=== PATIENT | female | born 1985 | race Caucasian/White ===

== ENCOUNTER 2018-11-02 19:49 | Inpatient (IN) | payer OTHER ==
--- NOTE | 2018-11-02 20:01 | PDOC ---
Rapid Medical Evaluation Time Seen by Provider: 11/02/18 19:56 Medical Evaluation: 11/02/18 19:56 HPI:Sent by PCP Dr Rah Garza [facility] who was concerned for Rhabdo PE:No gross deficits ORDERS: Labs CPK U preg Discharge Disposition - Diagnosis Abnormal laboratory test - Referrals - Patient Instructions - Post Discharge Activity
[2018-11-02 20:50] LABS: BASO % 0.9 % (0-2.0); EOS % 1.1 % (0-4.5); HEMATOCRIT 43.5 % (32.4-45.2); HEMOGLOBIN 14.4 GM/dL (10.7-15.3); LYMPH % 20.7 % (8-40); MCHC 33.2 g/dl (32.0-36.0); MEAN CELL VOLUME 96.3 fl (80-96); MEAN PLT VOLUME 8.4 fl (7.5-11.1); MONO % 4.5 % (3.8-10.2); NEUT % 72.8 % (42.8-82.8); PLATELET COUNT 289 K/MM3 (134-434); RBC 4.52 M/mm3 (3.60-5.2); RDW 13.4 % (11.6-15.6); WHITE BLOOD COUNT 14.7 K/mm3 (4.0-10.0)
[2018-11-02 20:58] LABS: EPI CELLS 9.3 /HPF (0-5/HPF); HYALINE CASTS 1 /lpf (0-8); URINE APPEARANCE CLOUDY; URINE BACTERIA 168.2 /hpf (NEGATIVE); URINE BILIRUBIN NEGATIVE (NEGATIVE); URINE COLOR YELLOW; URINE GLUCOSE (UA) NEGATIVE (NEGATIVE); URINE KETONE NEGATIVE (NEGATIVE); URINE LEUK ESTERASE NEGATIVE (NEGATIVE); URINE NITRITE NEGATIVE (NEGATIVE); URINE PROTEIN 1+ (NEGATIVE); URINE RBC 1 /hpf (0-4); URINE UROBILINOGEN 0.2 mg/dL (0.2-1.0); URINE WBC 2 /hpf (0-5)
--- NOTE | 2018-11-02 21:22 | PDOC ---
History of Present Illness - General Chief Complaint: Abnormal Lab Results (Outside) Stated Complaint: DOCTOR SENT-ABNORMAL WBC Time Seen by Provider: 11/02/18 19:56 History Source: Patient Exam Limitations: No Limitations - History of Present Illness Initial Comments: 11/02/18 22:13 HISTORY OF PRESENT ILLNESS: 33-year-old woman without significant medical history presents emergency department for evaluation of dark urine. Patient reports on Wednesday she went wake boarding for the first time and reported extreme physical exertion. The day after the wake boarding she reported increased body aches and noted that her urine was darker than usual. Patient took [id number] pain medicine increased her hydration but noted that the urine was still darker than her usual urine. Today with the increased body aches she went to an urgent care center with a did laboratory testing noted to have elevated AST and ALT, leukocytosis and hyperkalemia. Patient had an ultrasound done there and showed normal kidneys bilaterally. Patient denies any fevers, chills, dysuria, urinary frequency or alcohol intake. No recent travel or sick contacts. PAST MEDICAL HISTORY: Denies past medical history SURGICAL HISTORY: Denies ALLERGIES: No known drug allergies REVIEW OF SYSTEMS General/Constitutional: Denies fever or chills. Denies weakness, weight change. HEENT: Denies change in vision. Denies ear pain or discharge. Denies sore throat. Cardiovascular: Denies chest pain or shortness of breath. Respiratory: Denies cough, wheezing, or hemoptysis. Gastrointestinal: Denies nausea, vomiting, diarrhea or constipation. Denies rectal bleeding. Genitourinary: see HPI Musculoskeletal: Denies joint or muscle swelling or pain. Denies neck or back pain. Skin and breasts: Denies rash or easy bruising. Neurologic: Denies headache, vertigo, loss of consciousness, or loss of sensation. Psychiatric: Denies depression or anxiety. Endocrine: Denies increased thirst. Denies abnormal weight change. Hematologic/Lymphatic: Denies anemia, easy bleeding, or history of blood clots. Allergic/Immunologic: Denies hives or skin allergy. Denies latex allergy. PHYSICAL EXAM General Appearance: Well-appearing, appropriately dressed. No apparent distress , no intoxication. Respiratory/Chest: Lungs CTAB. No shortness of breath, chest tenderness, respiratory distress, accessory muscle use. No crackles, rales, rhonchi, stridor , wheezing, dullness Cardiovascular: RRR. S1, S2. No JVD, murmur, bradycardia, tachycardia. Gastrointestinal/Abdominal: Normal bowel sounds. Abdomen soft, non-distended. No tenderness or rebound tenderness. No organomegaly, pulsatile mass, guarding, hernia, hepatomegaly, splenomegaly. Musculoskeletal/Extremities: Normal inspection. FROM of all extremities, normal capillary refill. Pelvis Stable. No CVA tenderness. No tenderness to extremities, pedal edema, swelling, erythema or deformity. Integumentary: Appropriate color, dry, warm. No cyanosis, erythema, jaundice or rash Neurologic: furniture crater II-XII intact. Fully oriented, alert. Appropriate mood/affect. Motor strength 5/5. No appreciable EOM palsy, facial droop or sensory deficit. Is this a multiple visit Asthma Patient?: No Past History - Past Medical History Allergies/Adverse Reactions: Allergies Allergy/AdvReac Type Severity Reaction Status Date / Time No Known Allergies Allergy Verified 11/02/18 20:02 COPD: No - Psycho Social/Smoking Cessation Hx Smoking History: Never smoked *Physical Exam - Vital Signs Last Vital Signs Temp Pulse Resp BP Pulse Ox 98.5 F 80 18 156/117 H 99 11/02/18 19:57 11/02/18 19:57 11/02/18 19:57 11/02/18 19:57 11/02/18 19:57 ED Treatment Course - LABORATORY CBC & Chemistry Diagram: 11/02/18 20:31 11/02/18 20:31 - ADDITIONAL ORDERS Additional order review: Laboratory Results 11/02/18 11/02/18 20:28 20:28 Urine Color Yellow Urine Appearance Cloudy Urine pH 7.0 Ur Specific [place] 1.006 L Urine Protein 1+ H Urine Glucose (UA) Negative Urine Ketones Negative Urine Blood 3+ H Urine Nitrite Negative Urine Bilirubin Negative Urine Urobilinogen 0.2 Ur Leukocyte Esterase Negative Urine WBC (Auto) 2 Urine RBC (Auto) 1 Urine Casts (Auto) 1 U Epithel Cells (Auto) 9.3 Urine Bacteria (Auto) 168.2 Urine HCG, Qual Negative 11/02/18 20:31 RBC 4.52 MCV 96.3 H MCHC 33.2 RDW 13.4 MPV 8.4 Neutrophils % 72.8 Lymphocytes % 20.7 Monocytes % 4.5 Eosinophils % 1.1 Basophils % 0.9 Medical Decision Making - Medical Decision Making 11/02/18 22:19 A/P: 33-year-old woman with body aches and some dark urine Differential diagnosis includes but is not limited to-rhabdomyolysis, acute liver failure, kidney stones, urinary tract infection Laboratory testing per [facility] EKG Normal saline 1 L bolus Upper abdominal ultrasound Reassess Laboratory Tests 11/02/18 11/02/18 11/02/18 20:28 20:28 20:31 WBC 14.7 H RBC 4.52 Hgb 14.4 Hct 43.5 Plt Count 289 Sodium Potassium Chloride Carbon Dioxide Anion Gap BUN Creatinine Est GFR (CKD-EPI)NonAf Random Glucose Calcium Total Bilirubin AST ALT Alkaline Phosphatase Total Protein Albumin Urine Color Yellow Urine Appearance Cloudy Urine pH 7.0 Ur Specific [place] 1.006 L Urine Protein 1+ H Urine Glucose (UA) Negative Urine Ketones Negative Urine Blood 3+ H Urine Nitrite Negative Urine Bilirubin Negative Urine Urobilinogen 0.2 Ur Leukocyte Esterase Negative Urine WBC (Auto) 2 Urine RBC (Auto) 1 Urine Casts (Auto) 1 U Epithel Cells (Auto) 9.3 Urine Bacteria (Auto) 168.2 Urine HCG, Qual Negative 11/02/18 20:31 WBC RBC Hgb Hct Plt Count Sodium 137 Potassium 4.3 Chloride 102 Carbon Dioxide 27 Anion Gap 7 L BUN 15.2 Creatinine 0.6 Est GFR (CKD-EPI)NonAf 118.92 Random Glucose 96 Calcium 9.4 Total Bilirubin 0.3 AST 2696 H ALT 726 H Alkaline Phosphatase 48 Total Protein 6.8 Albumin 3.5 Urine Color Urine Appearance Urine pH Ur Specific [place] Urine Protein Urine Glucose (UA) Urine Ketones Urine Blood Urine Nitrite Urine Bilirubin Urine Urobilinogen Ur Leukocyte Esterase Urine WBC (Auto) Urine RBC (Auto) Urine Casts (Auto) U Epithel Cells (Auto) Urine Bacteria (Auto) Urine HCG, Qual 11/03/18 01:54 Patient has been sent out and the [facility] follow-up on CPK and upper abdominal sonogram. Discharge - Discharge Information Problems reviewed: Yes Clinical Impression/Diagnosis: Abnormal laboratory test - Follow up/Referral - Patient Discharge Instructions - Post Discharge Activity
[2018-11-02 21:40] LABS: ALBUMIN 3.5 g/dl (3.4-5.0); BILIRUBIN,TOTAL 0.3 mg/dL (0.2-1); BLOOD UREA NITROGEN 15.2 mg/dL (7-18); CALCIUM 9.4 mg/dL (8.5-10.1); CREATININE 0.6 mg/dL (0.55-1.3); POTASSIUM 4.3 mmol/L (3.5-5.1); TOT PROT 6.8 g/dl (6.4-8.2)
[2018-11-02] MEDS ORDERED: SODIUM CHLORIDE 1,000 ML IV STA (21:54)
--- NOTE | 2018-11-02 22:11 | PDOC ---
*Physical Exam - Vital Signs Last Vital Signs Temp Pulse Resp BP Pulse Ox 98.5 F 80 18 156/117 H 99 11/02/18 19:57 11/02/18 19:57 11/02/18 19:57 11/02/18 19:57 11/02/18 19:57 ED Treatment Course - LABORATORY CBC & Chemistry Diagram: 11/02/18 20:31 11/02/18 20:31 - ADDITIONAL ORDERS Additional order review: Laboratory Results 11/02/18 11/02/18 11/02/18 20:31 20:28 20:28 Sodium 137 Potassium 4.3 Chloride 102 Carbon Dioxide 27 Anion Gap 7 L BUN 15.2 Creatinine 0.6 Est GFR (CKD-EPI)AfAm 137.83 Est GFR (CKD-EPI)NonAf 118.92 Random Glucose 96 Calcium 9.4 Total Bilirubin 0.3 AST 2696 H ALT 726 H Alkaline Phosphatase 48 Total Protein 6.8 Albumin 3.5 Urine Color Yellow Urine Appearance Cloudy Urine pH 7.0 Ur Specific [place] 1.006 L Urine Protein 1+ H Urine Glucose (UA) Negative Urine Ketones Negative Urine Blood 3+ H Urine Nitrite Negative Urine Bilirubin Negative Urine Urobilinogen 0.2 Ur Leukocyte Esterase Negative Urine WBC (Auto) 2 Urine RBC (Auto) 1 Urine Casts (Auto) 1 U Epithel Cells (Auto) 9.3 Urine Bacteria (Auto) 168.2 Urine HCG, Qual Negative 11/02/18 20:31 RBC 4.52 MCV 96.3 H MCHC 33.2 RDW 13.4 MPV 8.4 Neutrophils % 72.8 Lymphocytes % 20.7 Monocytes % 4.5 Eosinophils % 1.1 Basophils % 0.9 Medical Decision Making - Medical Decision Making 11/02/18 22:10 Patient seen by the advanced practice provider under my direct supervision. Ancillary testing reviewed as necessary. I agree with plan as outlined by the advanced practice provider. Discharge - Discharge Information Problems reviewed: Yes Clinical Impression/Diagnosis: Abnormal laboratory test - Follow up/Referral - Patient Discharge Instructions - Post Discharge Activity
[2018-11-03] MEDS ORDERED: SODIUM CHLORIDE 1,000 ML IV STA (01:40)
--- NOTE | 2018-11-03 03:14 | PDOC ---
*Physical Exam - Vital Signs Last Vital Signs Temp Pulse Resp BP Pulse Ox 98.5 F 80 18 156/117 H 99 11/02/18 19:57 11/02/18 19:57 11/02/18 19:57 11/02/18 19:57 11/02/18 19:57 ED Treatment Course - LABORATORY CBC & Chemistry Diagram: 11/03/18 09:36 11/03/18 09:36 - ADDITIONAL ORDERS Additional order review: Laboratory Results 11/02/18 11/02/18 11/02/18 20:31 20:28 20:28 Sodium 137 Potassium 4.3 Chloride 102 Carbon Dioxide 27 Anion Gap 7 L BUN 15.2 Creatinine 0.6 Est GFR (CKD-EPI)AfAm 137.83 Est GFR (CKD-EPI)NonAf 118.92 Random Glucose 96 Calcium 9.4 Total Bilirubin 0.3 AST 2696 H ALT 726 H Alkaline Phosphatase 48 Total Protein 6.8 Albumin 3.5 Urine Color Yellow Urine Appearance Cloudy Urine pH 7.0 Ur Specific [place] 1.006 L Urine Protein 1+ H Urine Glucose (UA) Negative Urine Ketones Negative Urine Blood 3+ H Urine Nitrite Negative Urine Bilirubin Negative Urine Urobilinogen 0.2 Ur Leukocyte Esterase Negative Urine WBC (Auto) 2 Urine RBC (Auto) 1 Urine Casts (Auto) 1 U Epithel Cells (Auto) 9.3 Urine Bacteria (Auto) 168.2 Urine HCG, Qual Negative 11/02/18 20:31 RBC 4.52 MCV 96.3 H MCHC 33.2 RDW 13.4 MPV 8.4 Neutrophils % 72.8 Lymphocytes % 20.7 Monocytes % 4.5 Eosinophils % 1.1 Basophils % 0.9 - Medications Given in the ED: ED Medications Discontinued Medications Generic Name Dose Route Start Last Admin Trade Name Freq PRN Reason Stop Dose Admin Sodium Chloride 1,000 mls @ 1,000 mls/hr 11/02/18 21:54 11/02/18 22:47 Normal Saline - IV 11/02/18 22:53 1,000 mls/hr ASDIR STA Administration Sodium Chloride 1,000 mls @ 1,000 mls/hr 11/03/18 01:40 11/03/18 01:50 Normal Saline - IV 11/03/18 02:39 1,000 mls/hr ASDIR STA Administration Medical Decision Making - Medical Decision Making 11/03/18 03:11 Signout taken from GIAN Yepez. Patient is a 33 yo female w/ no pmh who presents for evaluation of dark urine and body aches following wake boarding this weekend. Patient noted to have elevated AST/ALT, Leukocytosis, and hyperkalemia. US normal, history and presentation concerning for rhabdomyolisis. Patient will be admitted for hydration and trending of liver labs. Discharge - Discharge Information Problems reviewed: Yes Clinical Impression/Diagnosis: Abnormal laboratory test Rhabdomyolysis Qualifiers: Rhabdomyolysis type: non-traumatic Qualified Code(s): M62.82 - Rhabdomyolysis - Admission Yes - Follow up/Referral - Patient Discharge Instructions - Post Discharge Activity
--- NOTE | 2018-11-03 04:18 | PN ---
Teaching Attending Note Name of Resident: Lo Grayson ATTENDING PHYSICIAN STATEMENT I saw and evaluated the patient. I reviewed the resident's note and discussed the case with the resident. I agree with the resident's findings and plan as documented. SUBJECTIVE: Patient is a 33 year old woman with a PMH of Asthma who presents to the ER with the complaint of dark urine. Patient reports on Wednesday she went "wake boarding " for the first time and reported extreme physical exertion. The day after the wake boarding she reported increased body aches and noted that her urine was darker than usual. Patient took [id number] pain medicine increased her hydration but noted that the urine was still darker than her usual urine. Today with the increased body aches she went to an Urgent Care Center and laboratory testing noted elevated AST and ALT, leukocytosis and hyperkalemia. Patient had an ultrasound done there and showed normal kidneys bilaterally. Patient denies any fevers, chills, dysuria, urinary frequency or alcohol intake. No recent travel or sick contacts. Denies illicit drug use or past episodes of dark urine. Has not had an asthma attack in a long time. Ambulating well to the bathroom without assistance. LMP was 2 weeks ago and she uses oral contraceptive pills. Has FH of HTN. OBJECTIVE: Alert Vital Signs Period Temp Pulse Resp BP Sys/Viveros Pulse Ox Last 24 Hr 98.5 F 80 18 156/117 99 HEENT: No Jaundice, eye redness or discharge, PERRLA, EOMI. Normocephalic, atraumatic. External ears are normal and hearing is grossly intact. No nasal discharge. Neck: Supple, nontender. No palpable adenopathy or thyromegaly. No JVD Chest: Good effort. Clear to auscultation and percussion. Heart: Regular. No S3, rub or murmur Abdomen: Not distended, soft, nontender and no HSM. No rebound or guarding. Normal bowel sounds. Ext: Peripheral pulses intact. No leg edema. Skin: Warm and dry. No petechiae, rash or ecchymosis. Neuro: Alert. Oriented x3. CN 2-12 grossly intact. Sensation grossly intact in all four extremities and DTR are symmetric. Psych: Appropriate mood and affect. Good insight. Abnormal Lab Results 11/02/18 11/02/18 11/02/18 20:28 20:31 20:31 WBC 14.7 H MCV 96.3 H Absolute Neuts (auto) 10.7 H Anion Gap 7 L AST 2696 H ALT 726 H Creatine Kinase Ur Specific [place] 1.006 L Urine Protein 1+ H Urine Blood 3+ H 11/03/18 01:26 WBC MCV Absolute Neuts (auto) Anion Gap AST ALT Creatine Kinase > 7000 H Ur Specific [place] Urine Protein Urine Blood ASSESSMENT AND PLAN: 1. Rhabdomyolysis - Likely due to extreme physical activity. Leukocytosis may be due to stress. No obvious source of infection. Will get a CXR, continue IV LR at 150 ml/hour, oral hydration, repeat CBC and trend CPK. Monitor calcium and phosphate. Monitor her BP closely - may have undiagnosed hypertension. Will treat appropriately once confirmed. 2. DVT prophylaxis - Early ambulation 3. Advance directives - Full code
--- NOTE | 2018-11-03 05:58 | HP ---
CHIEF COMPLAINT: PCP: unknown HISTORY OF PRESENT ILLNESS: 33 y/o/f with PMHx of asthma here for dark urine x3 days. Patient went wakeboarding on Wednesday and states she physically exerted herself. She has had soreness in her hamstrings, arms, and back since then. She states she fell into the water multiple times. Her urine has been dark since Wednesday of this week even though she states she has been drinking a lot of water. Patient denies any CP, SOB, dysuria, constipation, dizziness, fever, cough, or other symptoms. Patients last period was 2 weeks ago, she is currently sexually active with one partner and uses OCPs. ER course was notable for: (1) NS bolus x2 Recent Travel: none Fam Hx: Father of metastatic Ca when patient was 2 years old. Mother due to alcohol related disease at age 54. 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 PAST MEDICAL HISTORY: Asthma PAST SURGICAL HISTORY: denies Social History: Smoking: denies Alcohol: social EtOH Drugs: denies Allergies No Known Allergies Allergy (Verified 11/02/18 20:02) HOME MEDICATIONS: REVIEW OF SYSTEMS CONSTITUTIONAL: Absent: fever, chills, diaphoresis, generalized weakness, malaise, loss of appetite, weight change HEENT: Absent: rhinorrhea, nasal congestion, throat pain, throat swelling, difficulty swallowing, mouth swelling, ear pain, eye pain, visual changes CARDIOVASCULAR: Absent: chest pain, syncope, palpitations, irregular heart rate, lightheadedness , peripheral edema RESPIRATORY: Absent: cough, shortness of breath GASTROINTESTINAL: Absent: abdominal pain, abdominal distension, nausea, vomiting, diarrhea, constipation GENITOURINARY: Absent: dysuria, frequency, urgency, hesitancy, hematuria, flank pain, genital pain MUSCULOSKELETAL: back, hamstring, arm soreness Absent: joint swelling, back pain, neck pain SKIN: Absent: rash, itching, pallor NEUROLOGIC: Absent: headache, focal weakness or paresthesias, dizziness, unsteady gait, seizure, mental status changes, bladder or bowel incontinence PHYSICAL EXAMINATION Vital Signs - 24 hr 11/02/18 19:57 Temperature 98.5 F Pulse Rate 80 Respiratory 18 Rate Blood Pressure 156/117 H O2 Sat by Pulse 99 Oximetry (%) GENERAL: Awake, alert, and fully oriented, in no acute distress. HEAD: Normal with no signs of trauma. EYES: Pupils equal, round and reactive to light, extraocular movements intact EARS, NOSE, THROAT: nares patent, oropharynx clear without exudates. Moist mucous membranes. NECK: Normal range of motion, supple without lymphadenopathy LUNGS: Breath sounds equal, clear to auscultation bilaterally. No wheezes, and no crackles. No accessory muscle use. HEART: Regular rate and rhythm, normal S1 and S2 without murmur, rub or gallop. ABDOMEN: Soft, nontender, not distended, normoactive bowel sounds, no guarding, no rebound, no masses. MUSCULOSKELETAL: Normal range of motion at all joints. No bony deformities or tenderness. No CVA tenderness. UPPER EXTREMITIES: 2+ pulses, warm, well-perfused. No cyanosis. No clubbing. No peripheral edema. LOWER EXTREMITIES: 2+ pulses, warm, well-perfused. No calf tenderness. No peripheral edema. NEUROLOGICAL: Cranial nerves II-XII intact. Normal speech. Normal gait. PSYCHIATRIC: Cooperative. Good eye contact. Appropriate mood and affect. SKIN: Warm, normal turgor, no rashes or lesions noted, normal capillary refill. Laboratory Results - last 24 hr 11/02/18 11/02/18 11/02/18 20:28 20:28 20:31 WBC 14.7 H RBC 4.52 Hgb 14.4 Hct 43.5 MCV 96.3 H MCH 32.0 MCHC 33.2 RDW 13.4 Plt Count 289 MPV 8.4 Absolute Neuts (auto) 10.7 H Neutrophils % 72.8 Lymphocytes % 20.7 Monocytes % 4.5 Eosinophils % 1.1 Basophils % 0.9 Nucleated RBC % 0 Sodium Potassium Chloride Carbon Dioxide Anion Gap BUN Creatinine Est GFR (CKD-EPI)AfAm Est GFR (CKD-EPI)NonAf Random Glucose Calcium Total Bilirubin AST ALT Alkaline Phosphatase Creatine Kinase Creatine Kinase Index CK-MB (CK-2) Total Protein Albumin Urine Color Yellow Urine Appearance Cloudy Urine pH 7.0 Ur Specific [place] 1.006 L Urine Protein 1+ H Urine Glucose (UA) Negative Urine Ketones Negative Urine Blood 3+ H Urine Nitrite Negative Urine Bilirubin Negative Urine Urobilinogen 0.2 Ur Leukocyte Esterase Negative Urine WBC (Auto) 2 Urine RBC (Auto) 1 Urine Casts (Auto) 1 U Epithel Cells (Auto) 9.3 Urine Bacteria (Auto) 168.2 Urine HCG, Qual Negative 11/02/18 11/03/18 20:31 01:26 WBC RBC Hgb Hct MCV MCH MCHC RDW Plt Count MPV Absolute Neuts (auto) Neutrophils % Lymphocytes % Monocytes % Eosinophils % Basophils % Nucleated RBC % Sodium 137 Potassium 4.3 Chloride 102 Carbon Dioxide 27 Anion Gap 7 L BUN 15.2 Creatinine 0.6 Est GFR (CKD-EPI)AfAm 137.83 Est GFR (CKD-EPI)NonAf 118.92 Random Glucose 96 Calcium 9.4 Total Bilirubin 0.3 AST 2696 H ALT 726 H Alkaline Phosphatase 48 Creatine Kinase > 7000 H Creatine Kinase Index 0.0 CK-MB (CK-2) 32.4 H Total Protein 6.8 Albumin 3.5 Urine Color Urine Appearance Urine pH Ur Specific [place] Urine Protein Urine Glucose (UA) Urine Ketones Urine Blood Urine Nitrite Urine Bilirubin Urine Urobilinogen Ur Leukocyte Esterase Urine WBC (Auto) Urine RBC (Auto) Urine Casts (Auto) U Epithel Cells (Auto) Urine Bacteria (Auto) Urine HCG, Qual ASSESSMENT/PLAN: 33 y/o/f with PMHx of asthma here for dark urine x3 days and soreness after she went waterboarding this last weekend. 1)Rhabdomyolysis - cpk >7000 -LR @200mls/hr -repeat CPK and follow 2)Leukocytosis -repeat CBC, monitor -CXR to rule out infectious source 3)HTN -patient BP improving, continue to monitor -consider medication 4)Prophylaxis -Lovenox 5)FEN -LR@200mls/hr 6)Disposition -admitted to med/surg Visit type - Emergency Visit Emergency Visit: Yes ED Registration Date: 11/03/18 Care time: The patient presented to the Emergency Department on the above date and was hospitalized for further evaluation of their emergent condition. - New Patient This patient is new to me today: Yes Date on this admission: 11/03/18 - Critical Care Critical Care patient: No ATTENDING PHYSICIAN STATEMENT I saw and evaluated the patient. I reviewed the resident's note and discussed the case with the resident. I agree with the resident's findings and plan as documented. SUBJECTIVE: OBJECTIVE: ASSESSMENT AND PLAN:
[2018-11-03] MEDS: LACTATED RINGERS SOLUTION 1,000 ML IV SCH ×3 (06:21→22:36)
--- NOTE | 2018-11-03 09:06 | PN ---
Teaching Attending Note Name of Resident: Jocelyn Lindsey ATTENDING PHYSICIAN STATEMENT I saw and evaluated the patient. I reviewed the resident's note and discussed the case with the resident. I agree with the resident's findings and plan as documented. SUBJECTIVE: Patient is feeling better with no acute distress. lying in bed comfortably. OBJECTIVE: Vital Signs Temperature 98.1 F 11/03/18 06:22 Pulse Rate 80 11/03/18 06:22 Respiratory Rate 17 11/03/18 06:22 Blood Pressure 154/97 11/03/18 06:22 O2 Sat by Pulse Oximetry (%) 99 11/03/18 06:22 GENERAL: The patient is awake, alert, and fully oriented, in no acute distress. HEAD: Normal with no signs of trauma. EYES: PERRL, extraocular movements intact, sclera anicteric, conjunctiva clear. ENT: Ears normal, oropharynx clear without exudates, moist mucous membranes. NECK: Trachea midline, full range of motion, supple. LUNGS: Breath sounds equal, clear to auscultation bilaterally, no wheezes, no crackles, no accessory muscle use. HEART: Regular rate and rhythm, S1, S2 without murmur, rub or gallop. ABDOMEN: Soft, Nt,ND, normoactive bowel sounds, no guarding, no rebound, no hepatosplenomegaly, no masses. EXTREMITIES: 2+ pulses, warm, well-perfused, no edema. NEUROLOGICAL: Cranial nerves II through XII grossly intact. Normal speech, gait not observed. PSYCH: Normal mood, normal affect. SKIN: Warm, dry, normal turgor, no rashes or lesions noted CBCD WBC 14.7 K/mm3 (4.0-10.0) H 11/02/18 20:31 RBC 4.52 M/mm3 (3.60-5.2) 11/02/18 20:31 Hgb 14.4 GM/dL (10.7-15.3) 11/02/18 20:31 Hct 43.5 % (32.4-45.2) 11/02/18 20:31 MCV 96.3 fl (80-96) H 11/02/18 20:31 MCHC 33.2 g/dl (32.0-36.0) 11/02/18 20: RDW 13.4 % (11.6-15.6) 11/02/18 20:31 Plt Count 289 K/MM3 (134-434) 11/02/18 20:31 MPV 8.4 fl (7.5-11.1) 11/02/18 20:31 CMP Sodium 137 mmol/L (136-145) 11/02/18 20:31 Potassium 4.3 mmol/L (3.5-5.1) 11/02/18 20:31 Chloride 102 mmol/L (98-107) 11/02/18 20:31 Carbon Dioxide 27 mmol/L (21-32) 11/02/18 20:31 Anion Gap 7 MMOL/L (8-16) L 11/02/18 20:31 BUN 15.2 mg/dL (7-18) 11/02/18 20:31 Creatinine 0.6 mg/dL (0.55-1.3) 11/02/18 20:31 Random Glucose 96 mg/dL (74-106) 11/02/18 20:31 Calcium 9.4 mg/dL (8.5-10.1) 11/02/18 20:31 Total Bilirubin 0.3 mg/dL (0.2-1) 11/02/18 20:31 AST 2696 U/L (15-37) H 11/02/18 20:31 ALT 726 U/L (13-61) H 11/02/18 20:31 Alkaline Phosphatase 48 U/L (45-117) 11/02/18 20:31 Total Protein 6.8 g/dl (6.4-8.2) 11/02/18 20:31 Albumin 3.5 g/dl (3.4-5.0) 11/02/18 20:31 CARDIAC ENZYMES Creatine Kinase > 7000 U/L (26-192) H 11/03/18 01:26 Current Medications Generic Name Dose Route Start Last Admin Trade Name Freq PRN Reason Stop Dose Admin Enoxaparin Sodium 40 mg 11/03/18 10:00 Lovenox - SQ DAILY BRAYDEN Lactated Ringer's 1,000 mls @ 200 mls/hr 11/03/18 06:00 11/03/18 06:21 Lactated Ringers Solution IV 200 mls/hr ASDIR BRAYDEN Administration ASSESSMENT AND PLAN: Patient is a 33 year old woman with a PMHx of Asthma who presents to the ER with the complaint of dark urine s/p "wake boarding" she reported increased body aches and her urine was darker than usual. # Acute Rhabdomyolysis -7k will monitor, IVF 200cc/hr, elevated LFTs with normal US of liver, will continue hydration # Acute liver injury: continue IVF 200cc/hr , us negative with negative alk phos , will get alcohol level and tylenol level #Acute leukocytosis: will monitor , no signs of any infection so far #macrocytosis; will monitor DVT prophylaxis - Early ambulation Advance directives - Full code follow cpk,tsh,LFTs,Pt/inr, serial cmps,
[2018-11-03] MEDS ORDERED: ENOXAPARIN NA (PORCINE) 40 MG/0.4 ML DISP.SYRIN SQ SCH (10:00)
[2018-11-03 10:08] LABS: HEMATOCRIT 39.1 % (32.4-45.2); HEMOGLOBIN 13.3 GM/dL (10.7-15.3); MCH 32.7 pg (25.7-33.7); MEAN CELL VOLUME 96.2 fl (80-96); MEAN PLT VOLUME 8.3 fl (7.5-11.1); PLATELET COUNT 232 K/MM3 (134-434); RBC 4.06 M/mm3 (3.60-5.2); WHITE BLOOD COUNT 8.8 K/mm3 (4.0-10.0)
[2018-11-03 11:01] LABS: ALBUMIN 2.8 g/dl (3.4-5.0); BILIRUBIN,TOTAL 0.4 mg/dL (0.2-1); BLOOD UREA NITROGEN 6.8 mg/dL (7-18); CREATININE 0.5 mg/dL (0.55-1.3); POTASSIUM 3.7 mmol/L (3.5-5.1); TOT PROT 5.7 g/dl (6.4-8.2)
[2018-11-03 12:46] LABS: INR 0.93 (0.83-1.09)
[2018-11-03 14:24] VITALS: BMI 22.6
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
[2018-11-03 17:19] LABS: COCAINE, UR NEGATIVE ng/ml (CUTOFF=300); METHADONE, UR NEGATIVE ng/ml (CUTOFF=300); OPIATES, URI NEGATIVE ng/ml (CUTOFF=300); PHENCYCLIDINE,URINE NEGATIVE ng/ml (CUTOFF=25); URINE AMPHETAMINES NEGATIVE ng/ml (CUTOFF=500); URINE BARBITURATES NEGATIVE ng/ml (CUTOFF=200); URINE BENZODIAZEPINES NEGATIVE ng/ml (CUTOFF=200)
[2018-11-04] MEDS ORDERED: amLODIPine BESYLATE 5 MG TABLET (FP) PO ONE (07:16)
[2018-11-04 07:28] LABS: HEMATOCRIT 39.4 % (32.4-45.2); HEMOGLOBIN 13.7 GM/dL (10.7-15.3); MCH 33.2 pg (25.7-33.7); MCHC 34.6 g/dl (32.0-36.0); MEAN CELL VOLUME 95.7 fl (80-96); MEAN PLT VOLUME 8.5 fl (7.5-11.1); PLATELET COUNT 232 K/MM3 (134-434); RBC 4.12 M/mm3 (3.60-5.2); RDW 12.8 % (11.6-15.6); WHITE BLOOD COUNT 9.3 K/mm3 (4.0-10.0)
[2018-11-04] MEDS: LACTATED RINGERS SOLUTION 1,000 ML IV SCH ×2 (09:04→16:04)
[2018-11-04 10:21] LABS: ALBUMIN 2.8 g/dl (3.4-5.0); ALK PHOS 41 U/L (45-117); ANION GAP 6 MMOL/L (8-16); BILIRUBIN,TOTAL 0.3 mg/dL (0.2-1); BLOOD UREA NITROGEN 9.8 mg/dL (7-18); CALCIUM 8.3 mg/dL (8.5-10.1); CHLORIDE 104 mmol/L (98-107); CO2 28 mmol/L (21-32); CREATININE 0.6 mg/dL (0.55-1.3); GLUCOSE,RANDOM 74 mg/dL (74-106); POTASSIUM 4.3 mmol/L (3.5-5.1); SGPT/ALT 556 U/L (13-61); SODIUM 138 mmol/L (136-145); TOT PROT 5.7 g/dl (6.4-8.2)
[2018-11-04 10:25] LABS: INR 0.99 (0.83-1.09); PROTHROMBIN TIME (PATIENT) 11.7 SEC (9.7-13.0)
[2018-11-04 10:25] LABS: SGOT/AST 1358 U/L (15-37)
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
--- NOTE | 2018-11-04 18:49 | PN ---
Progress Note (short form) - Note Progress Note: Spoke to lad, dilution completed, CPK is 36,192 Problem List - Problems (1) Rhabdomyolysis Code(s): M62.82 - RHABDOMYOLYSIS Qualifiers: Rhabdomyolysis type: non-traumatic Qualified Code(s): M62.82 - Rhabdomyolysis
[2018-11-05] MEDS: LACTATED RINGERS SOLUTION 1,000 ML IV SCH ×3 (02:59→17:44)
[2018-11-05 07:58] LABS: HEMATOCRIT 37.7 % (32.4-45.2); HEMOGLOBIN 13.3 GM/dL (10.7-15.3); MCH 33.5 pg (25.7-33.7); MCHC 35.3 g/dl (32.0-36.0); MEAN CELL VOLUME 95.1 fl (80-96); MEAN PLT VOLUME 8.4 fl (7.5-11.1); PLATELET COUNT 222 K/MM3 (134-434); RBC 3.97 M/mm3 (3.60-5.2); RDW 13.4 % (11.6-15.6); WHITE BLOOD COUNT 9.4 K/mm3 (4.0-10.0)
[2018-11-05 08:52] LABS: ALBUMIN 2.8 g/dl (3.4-5.0); ALK PHOS 44 U/L (45-117); ANION GAP 5 MMOL/L (8-16); BILIRUBIN,TOTAL 0.3 mg/dL (0.2-1); BLOOD UREA NITROGEN 10.4 mg/dL (7-18); CALCIUM 8.5 mg/dL (8.5-10.1); CHLORIDE 105 mmol/L (98-107); CO2 30 mmol/L (21-32); CREATININE 0.6 mg/dL (0.55-1.3); GLUCOSE,RANDOM 79 mg/dL (74-106); POTASSIUM 4.3 mmol/L (3.5-5.1); SGOT/AST 810 U/L (15-37); SGPT/ALT 461 U/L (13-61); SODIUM 139 mmol/L (136-145); TOT PROT 5.8 g/dl (6.4-8.2)
[2018-11-05 09:32] LABS: URINE APPEARANCE CLOUDY; URINE BILIRUBIN NEGATIVE (NEGATIVE); URINE COLOR YELLOW; URINE GLUCOSE (UA) NEGATIVE (NEGATIVE); URINE KETONE NEGATIVE (NEGATIVE); URINE LEUK ESTERASE NEGATIVE (NEGATIVE); URINE NITRITE NEGATIVE (NEGATIVE); URINE PROTEIN NEGATIVE (NEGATIVE); URINE UROBILINOGEN 0.2 mg/dL (0.2-1.0)
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
--- NOTE | 2018-11-05 18:42 | PN ---
Progress Note (short form) - Note Progress Note: covering dr perez problems 1. rhabdo 2. transaminitis 3. hx asthma Current Medications Lactated Ringer's (Lactated Ringers Solution) 1,000 mls @ 200 mls/hr IV ASDIR BRAYDEN Last Admin: 11/05/18 17:44 Dose: 200 mls/hr Vital Signs Period Temp Pulse Resp BP Sys/Viveros Pulse Ox Last 24 Hr 97.9 F-98.7 F 66-85 18-18 123-142/55-94 95-95 CBC, BMP 11/05/18 06:45 11/05/18 06:45 Rhabdo renal function normal Plan - continue hydration f/u cpk
[2018-11-06] MEDS: LACTATED RINGERS SOLUTION 1,000 ML IV SCH ×3 (01:56→18:14)
--- NOTE | 2018-11-06 14:21 | PN ---
Physical Exam: SUBJECTIVE: Patient seen and examined. Pt. denies any complaints at this time. OBJECTIVE: Vital Signs Period Temp Pulse Resp BP Sys/Viveros Pulse Ox Last 24 Hr 98.6 F-98.9 F 64-80 16-20 131-151/86-100 95-95 GENERAL: The patient is awake, alert, and fully oriented, in no acute distress. HEAD: Normal with no signs of trauma. EYES: extraocular movements intact, sclera anicteric, conjunctiva clear. No ptosis. ENT: Ears normal, nares patent, oropharynx clear without exudates, moist mucous membranes. NECK: Trachea midline, full range of motion, supple. LUNGS: Breath sounds equal, clear to auscultation bilaterally, no wheezes, no crackles, no accessory muscle use. HEART: Regular rate and rhythm, S1, S2 without murmur ABDOMEN: Soft, nontender, nondistended, normoactive bowel sounds, no guarding, no rebound EXTREMITIES: 2+ dorsal pedal pulses, warm, well-perfused, no edema. NEUROLOGICAL: Cranial nerves II through XII grossly intact. Normal speech, gait not observed. PSYCH: Normal mood, normal affect. SKIN: Warm, dry, normal turgor, no rashes or lesions noted Laboratory Results - last 24 hr 11/06/18 07:22 Creatine Kinase 6291 H Creatine Kinase Index 0.0 CK-MB (CK-2) 4.9 H Home Medications Medication Instructions Recorded Ethinyl Estradiol/Drospirenone 1 tab PO DAILY 11/03/18 [Drospirenone-Ee 3-0.02 mg Tab] Active Medications Current Medications Lactated Ringer's (Lactated Ringers Solution) 1,000 mls @ 200 mls/hr IV ASDIR [facility] Last Admin: 11/06/18 01:56 Dose: 200 mls/hr ASSESSMENT/PLAN: Pt. is a 33 y.o. F w/ PMHx. of asthma, on OCPs here for dark urine x3 days and soreness after she went waterboarding this last weekend. #Rhabdomyolysis - presented with CPK >7000(36K when diluted in lab) -LR @200mls/hr -continue trending CPK last 6,291 -Renal US benign #Transaminitis 2/2 rhabdomyolysis- resolving - Initial AST/ALT: 1985/594>1358/556--->810/461 - continue IVF 200cc/hr - normal u/s of liver with negative alk phos #Leukocytosis - resolved - afebrile without any obvious source or other signs of infection, will continue to monitor # Macrocytosis - will monitor # HTN - continue to monitor, IVF at high rate may be contributing - will consider medication, f/u outpatient # DVT PPx. - early ambulation # FEN -LR@200mls/hr Visit type - Emergency Visit Emergency Visit: Yes ED Registration Date: 11/03/18 Care time: The patient presented to the Emergency Department on the above date and was hospitalized for further evaluation of their emergent condition. - New Patient This patient is new to me today: No - Critical Care Critical Care patient: No - Discharge Referral Referred to [facility] Med P.C.: No ATTENDING PHYSICIAN STATEMENT I saw and evaluated the patient. I reviewed the resident's note and discussed the case with the resident. I agree with the resident's findings and plan as documented. SUBJECTIVE: OBJECTIVE: ASSESSMENT AND PLAN:
--- NOTE | 2018-11-06 16:29 | PN ---
Teaching Attending Note Name of Resident: Nestor Davis ATTENDING PHYSICIAN STATEMENT I saw and evaluated the patient. I reviewed the resident's note and discussed the case with the resident. I agree with the resident's findings and plan as documented. SUBJECTIVE: Patient is comfortable with no acute distress. Denies any muscle pain, urinating without any complications. OBJECTIVE: Vital Signs Temperature 98.9 F 11/06/18 14:11 Pulse Rate 80 11/06/18 14:11 Respiratory Rate 20 11/06/18 14:11 Blood Pressure 145/91 11/06/18 14:11 O2 Sat by Pulse Oximetry (%) 95 11/06/18 09:00 GENERAL: The patient is awake, alert, and fully oriented, in no acute distress. HEAD: Normal with no signs of trauma. EYES: PERRL, extraocular movements intact, sclera anicteric, conjunctiva clear. ENT: Ears normal, oropharynx clear without exudates, moist mucous membranes. NECK: Trachea midline, full range of motion, supple. LUNGS: Breath sounds equal, clear to auscultation bilaterally, no wheezes, no crackles, no accessory muscle use. HEART: Regular rate and rhythm, S1, S2 without murmur, rub or gallop. ABDOMEN: Soft, Nt,ND, normoactive bowel sounds, no guarding, no rebound, no hepatosplenomegaly, no masses. EXTREMITIES: 2+ pulses, warm, well-perfused, no edema. NEUROLOGICAL: Cranial nerves II through XII grossly intact. Normal speech, gait not observed. PSYCH: Normal mood, normal affect. SKIN: Warm, dry, normal turgor, no rashes or lesions noted CBCD WBC 9.4 K/mm3 (4.0-10.0) 11/05/18 06:45 RBC 3.97 M/mm3 (3.60-5.2) 11/05/18 06:45 Hgb 13.3 GM/dL (10.7-15.3) 11/05/18 06:45 Hct 37.7 % (32.4-45.2) 11/05/18 06:45 MCV 95.1 fl (80-96) 11/05/18 06:45 MCHC 35.3 g/dl (32.0-36.0) 11/05/18 06:45 RDW 13.4 % (11.6-15.6) 11/05/18 06:45 Plt Count 222 K/MM3 (134-434) 11/05/18 06:45 MPV 8.4 fl (7.5-11.1) 11/05/18 06:45 CMP Sodium 139 mmol/L (136-145) 11/05/18 06:45 Potassium 4.3 mmol/L (3.5-5.1) 11/05/18 06:45 Chloride 105 mmol/L (98-107) 11/05/18 06:45 Carbon Dioxide 30 mmol/L (21-32) 11/05/18 06:45 Anion Gap 5 MMOL/L (8-16) L 11/05/18 06:45 BUN 10.4 mg/dL (7-18) 11/05/18 06:45 Creatinine 0.6 mg/dL (0.55-1.3) 11/05/18 06:45 Random Glucose 79 mg/dL (74-106) 11/05/18 06:45 Calcium 8.5 mg/dL (8.5-10.1) 11/05/18 06:45 Total Bilirubin 0.3 mg/dL (0.2-1) 11/05/18 06:45 AST 810 U/L (15-37) H 11/05/18 06:45 ALT 461 U/L (13-61) H 11/05/18 06:45 Alkaline Phosphatase 44 U/L (45-117) L 11/05/18 06:45 Total Protein 5.8 g/dl (6.4-8.2) L 11/05/18 06:45 Albumin 2.8 g/dl (3.4-5.0) L 11/05/18 06:45 CARDIAC ENZYMES Creatine Kinase 6291 U/L (26-192) H 11/06/18 07:22 Current Medications Generic Name Dose Route Start Last Admin Trade Name Freq PRN Reason Stop Dose Admin Lactated Ringer's 1,000 mls @ 200 mls/hr 11/03/18 06:00 11/06/18 01:56 Lactated Ringers Solution IV 200 mls/hr ASDIR BRAYDEN Administration Home Medications Medication Instructions Recorded Ethinyl Estradiol/Drospirenone 1 tab PO DAILY 11/03/18 [Drospirenone-Ee 3-0.02 mg Tab] ASSESSMENT AND PLAN: Patient is a 33 year old woman with a PMHx of Asthma who presents to the ER with the complaint of dark urine s/p "wake boarding" she reported increased body aches and her urine was darker than usual. # Acute Rhabdomyolysis -7k-->repeat 7K--> actual # is 36K, -->14K-->6291 today, will continue IVF 200cc/hr, elevated LFTs is trending down , repeat level in am. pending urine myoglobin ordered. once stable will discharge # Acute liver injury: trending down due to Rhabdo continue IVF 200cc/hr , us negative with negative alk phos , alcohol level and tylenol level negative. #Acute leukocytosis:improved , no signs of any infection #macrocytosis; improved DVT prophylaxis - Early ambulation Advance directives - Full code
--- NOTE | 2018-11-06 21:59 | PN ---
Progress Note (short form) - Note Progress Note: covering dr perez problems 1. rhabdo 2. transaminitis 3. hx asthma Active Medications Lactated Ringer's (Lactated Ringers Solution) 1,000 mls @ 200 mls/hr IV ASDIR BRAYDEN Last Admin: 11/06/18 18:14 Dose: 200 mls/hr Last Vital Signs Temp Pulse Resp BP Pulse Ox 98.2 F 69 20 142/91 95 11/06/18 18:00 11/06/18 18:00 11/06/18 18:00 11/06/18 18:00 11/06/18 09:00 CBC, BMP 11/05/18 06:45 11/05/18 06:45 Rhabdo from trauma renal function normal CPK now 6K Plan - continue hydration f/u cpk
[2018-11-07] MEDS: LACTATED RINGERS SOLUTION 1,000 ML IV SCH ×2 (01:48→18:52)
--- NOTE | 2018-11-07 07:01 | EKG ---
Test Reason : Blood Pressure : / mmHG Vent. Rate : 078 BPM Atrial Rate : 078 BPM P-R Int : 128 ms QRS Dur : 078 ms QT Int : 374 ms P-R-T Axes : 057 075 040 degrees QTc Int : 426 ms NORMAL SINUS RHYTHM WITH SINUS ARRHYTHMIA NORMAL ECG NO PREVIOUS ECGS AVAILABLE Confirmed by AMILCAR SANDERS, EULA ([id number]) on 11/03/2018 1:59:07 PM Referred By: Confirmed By:EULA FITZGERALD MD
[2018-11-07 07:41] LABS: ALBUMIN 2.9 g/dl (3.4-5.0); BILIRUBIN,TOTAL 0.2 mg/dL (0.2-1); CALCIUM 8.7 mg/dL (8.5-10.1); CREATININE 0.6 mg/dL (0.55-1.3); MAGNESIUM 1.8 mg/dL (1.8-2.4); PHOSPHOROUS 3.7 mg/dL (2.5-4.9); POTASSIUM 4.5 mmol/L (3.5-5.1); TOT PROT 6.1 g/dl (6.4-8.2)
--- NOTE | 2018-11-07 14:13 | PN ---
Progress Note, Physician History of Present Illness: Pt seen and examined at bedside. She is awake and alert. She denies muscle pain. - Current Medication List Current Medications: Active Medications Lactated Ringer's (Lactated Ringers Solution) 1,000 mls @ 200 mls/hr IV [facility] Last Admin: 11/07/18 01:48 Dose: 200 mls/hr - Objective Vital Signs: Vital Signs Temperature 98.2 F 11/07/18 09:51 Pulse Rate 80 11/07/18 09:51 Respiratory Rate 20 11/07/18 09:51 Blood Pressure 139/80 11/07/18 09:51 O2 Sat by Pulse Oximetry (%) 98 11/06/18 21:00 Constitutional: Yes: Calm Eyes: Yes: Conjunctiva Clear HENT: Yes: Atraumatic Neck: Yes: Supple Cardiovascular: Yes: S1, S2 Respiratory: Yes: CTA Bilaterally Gastrointestinal: Yes: Soft Genitourinary: Yes: WNL Musculoskeletal: Yes: WNL Edema: No Neurological: Yes: Oriented Psychiatric: Yes: Oriented Labs: CBC, BMP 11/05/18 06:45 11/07/18 06:15 INR, PTT INR 0.99 (0.83-1.09) 11/04/18 09:15 Problem List - Problems (1) Rhabdomyolysis Code(s): M62.82 - RHABDOMYOLYSIS Qualifiers: Rhabdomyolysis type: non-traumatic Qualified Code(s): M62.82 - Rhabdomyolysis Assessment/Plan Current Medications Generic Name Dose Route Start Last Admin Trade Name Freq PRN Reason Stop Dose Admin Lactated Ringer's 1,000 mls @ 200 mls/hr 11/03/18 06:00 11/07/18 01:48 Lactated Ringers Solution IV 200 mls/hr ASDIR [facility] Administration Laboratory Tests 11/05/18 08:06 Ur Specific [place] 1.008 L Urine Protein Negative Urine Blood Negative Impression 1. rhabdo 2. transaminitis 3. hx asthma Plan - cpk is improving - follow repeat cpk - lft is improving - repeat ua is improved
--- NOTE | 2018-11-07 16:42 | PN ---
Physical Exam: SUBJECTIVE: Patient seen and examined at the bedside, there were no acute events. Patient reports she is feeling good and wants to be discharged. OBJECTIVE: Vital Signs Period Temp Pulse Resp BP Sys/Viveros Pulse Ox Last 24 Hr 97.5 F-98.7 F 60-80 20-20 129-142/80-91 98-98 GENERAL: The patient is awake, alert, and fully oriented, in no acute distress. HEAD: Normal with no signs of trauma. EYES: PERRL, extraocular movements intact, sclera anicteric, conjunctiva clear. No ptosis. ENT: Ears normal, nares patent, oropharynx clear without exudates, moist mucous membranes. NECK: Trachea midline, full range of motion, supple. LUNGS: Breath sounds equal, clear to auscultation bilaterally, no wheezes, no crackles, no accessory muscle use. HEART: Regular rate and rhythm, S1, S2 without murmur, rub or gallop. ABDOMEN: Soft, nontender, nondistended, normoactive bowel sounds, no guarding, no rebound, no hepatosplenomegaly, no masses. EXTREMITIES: 2+ pulses, warm, well-perfused, no edema. NEUROLOGICAL: Cranial nerves II through XII grossly intact. Normal speech, gait not observed. PSYCH: Normal mood, normal affect. SKIN: Warm, dry, normal turgor, no rashes or lesions noted Laboratory Results - last 24 hr 11/07/18 06:15 Sodium 140 Potassium 4.5 Chloride 105 Carbon Dioxide 29 Anion Gap 7 L BUN 11.0 Creatinine 0.6 Est GFR (CKD-EPI)AfAm 137.83 Est GFR (CKD-EPI)NonAf 118.92 Random Glucose 80 Calcium 8.7 Phosphorus 3.7 Magnesium 1.8 Total Bilirubin 0.2 AST 233 H ALT 317 H Alkaline Phosphatase 48 Creatine Kinase 3283 H Creatine Kinase Index 0.1 CK-MB (CK-2) 5.8 H Total Protein 6.1 L Albumin 2.9 L Active Medications Generic Name Dose Route Start Last Admin Trade Name Freq PRN Reason Stop Dose Admin Lactated Ringer's 1,000 mls @ 200 mls/hr 11/03/18 06:00 11/07/18 01:48 Lactated Ringers Solution IV 200 mls/hr ASDIR [facility] Administration ASSESSMENT/PLAN: Pt. is a 33 y.o. F w/ PMHx. of asthma, on OCPs here for dark urine x3 days and soreness after she went waterboarding this last weekend. #Rhabdomyolysis - presented with CPK >7000(36K when diluted in lab) -LR @200mls/hr -continue trending CPK last 3,283 -Renal US benign #Transaminitis 2/2 rhabdomyolysis- resolving - Initial AST/ALT: 1985/594>1358/556--->810/461 --> 233/ 317 - continue IVF 200cc/hr - normal u/s of liver with negative alk phos #Leukocytosis - resolved - afebrile without any obvious source or other signs of infection, will continue to monitor # Macrocytosis - will monitor # HTN - continue to monitor, IVF at high rate may be contributing - will consider medication, f/u outpatient # DVT PPx. - early ambulation # FEN -LR@200mls/hr Visit type - Emergency Visit Emergency Visit: Yes ED Registration Date: 11/03/18 Care time: The patient presented to the Emergency Department on the above date and was hospitalized for further evaluation of their emergent condition. - New Patient This patient is new to me today: No - Critical Care Critical Care patient: No - Discharge Referral Referred to [facility] Med P.C.: No ATTENDING PHYSICIAN STATEMENT I saw and evaluated the patient. I reviewed the resident's note and discussed the case with the resident. I agree with the resident's findings and plan as documented. SUBJECTIVE: OBJECTIVE: ASSESSMENT AND PLAN:
--- NOTE | 2018-11-07 16:47 | PN ---
Teaching Attending Note Name of Resident: Jocelyn Lindsey ATTENDING PHYSICIAN STATEMENT I saw and evaluated the patient. I reviewed the resident's note and discussed the case with the resident. I agree with the resident's findings and plan as documented. SUBJECTIVE: Patient is comfortable with no acute distress. clear urine now. OBJECTIVE: Vital Signs Temperature 97.5 F L 11/07/18 14:19 Pulse Rate 60 11/07/18 14:19 Respiratory Rate 20 11/07/18 14:19 Blood Pressure 133/89 11/07/18 14:19 O2 Sat by Pulse Oximetry (%) 98 11/07/18 09:00 GENERAL: The patient is awake, alert, and fully oriented, in no acute distress. HEAD: Normal with no signs of trauma. EYES: PERRL, extraocular movements intact, sclera anicteric, conjunctiva clear. ENT: Ears normal, oropharynx clear without exudates, moist mucous membranes. NECK: Trachea midline, full range of motion, supple. LUNGS: Breath sounds equal, clear to auscultation bilaterally, no wheezes, no crackles, no accessory muscle use. HEART: Regular rate and rhythm, S1, S2 positive , without murmur, rub or gallop. ABDOMEN: Soft, Nt,ND, normoactive bowel sounds, no guarding, no rebound, no hepatosplenomegaly, no masses. EXTREMITIES: 2+ pulses, warm, well-perfused, no edema. NEUROLOGICAL: Cranial nerves II through XII grossly intact. Normal speech, gait not observed. PSYCH: Normal mood, normal affect. SKIN: Warm, dry, normal turgor, no rashes or lesions noted CBCD WBC 9.4 K/mm3 (4.0-10.0) 11/05/18 06:45 RBC 3.97 M/mm3 (3.60-5.2) 11/05/18 06:45 Hgb 13.3 GM/dL (10.7-15.3) 11/05/18 06:45 Hct 37.7 % (32.4-45.2) 11/05/18 06:45 MCV 95.1 fl (80-96) 11/05/18 06:45 MCHC 35.3 g/dl (32.0-36.0) 11/05/18 06:45 RDW 13.4 % (11.6-15.6) 11/05/18 06:45 Plt Count 222 K/MM3 (134-434) 11/05/18 06:45 MPV 8.4 fl (7.5-11.1) 11/05/18 06:45 CMP Sodium 140 mmol/L (136-145) 11/07/18 06:15 Potassium 4.5 mmol/L (3.5-5.1) 11/07/18 06:15 Chloride 105 mmol/L (98-107) 11/07/18 06:15 Carbon Dioxide 29 mmol/L (21-32) 11/07/18 06:15 Anion Gap 7 MMOL/L (8-16) L 11/07/18 06:15 BUN 11.0 mg/dL (7-18) 11/07/18 06:15 Creatinine 0.6 mg/dL (0.55-1.3) 11/07/18 06:15 Random Glucose 80 mg/dL (74-106) 11/07/18 06:15 Calcium 8.7 mg/dL (8.5-10.1) 11/07/18 06:15 Total Bilirubin 0.2 mg/dL (0.2-1) 11/07/18 06:15 AST 233 U/L (15-37) H 11/07/18 06:15 ALT 317 U/L (13-61) H 11/07/18 06:15 Alkaline Phosphatase 48 U/L (45-117) 11/07/18 06:15 Total Protein 6.1 g/dl (6.4-8.2) L 11/07/18 06:15 Albumin 2.9 g/dl (3.4-5.0) L 11/07/18 06:15 CARDIAC ENZYMES Creatine Kinase 3283 U/L (26-192) H 11/07/18 06:15 Current Medications Generic Name Dose Route Start Last Admin Trade Name Freq PRN Reason Stop Dose Admin Lactated Ringer's 1,000 mls @ 200 mls/hr 11/03/18 06:00 11/07/18 01:48 Lactated Ringers Solution IV 200 mls/hr ASDIR BRAYDEN Administration Home Medications Medication Instructions Recorded Ethinyl Estradiol/Drospirenone 1 tab PO DAILY 11/03/18 [Drospirenone-Ee 3-0.02 mg Tab] ASSESSMENT AND PLAN: Patient is a 33 year old woman with a PMHx of Asthma who presents to the ER with the complaint of dark urine s/p "wake boarding" she reported increased body aches and her urine was darker than usual. # Acute Rhabdomyolysis -7k-->repeat 7K--> actual # is 36K, -->14K-->6291--3k today, will continue IVF 200cc/hr, elevated LFTs is trending down , repeat level in am. pending urine myoglobin ordered. once CPk below 1k ten patient can be discharged # Acute liver injury: trending down due to Rhabdo continue IVF 200cc/hr , us negative with negative alk phos , alcohol level and tylenol level negative. #Acute leukocytosis:improved , no signs of any infection #macrocytosis; improved DVT prophylaxis - Early ambulation Advance directives - Full code discharge when cpk below 1k
[2018-11-08] MEDS: LACTATED RINGERS SOLUTION 1,000 ML IV SCH (06:27)
[2018-11-08 06:31] LABS: HEMATOCRIT 37.5 % (32.4-45.2); HEMOGLOBIN 12.9 GM/dL (10.7-15.3); MCH 33.2 pg (25.7-33.7); MCHC 34.4 g/dl (32.0-36.0); MEAN CELL VOLUME 96.4 fl (80-96); MEAN PLT VOLUME 8.3 fl (7.5-11.1); PLATELET COUNT 229 K/MM3 (134-434); RBC 3.89 M/mm3 (3.60-5.2); WHITE BLOOD COUNT 7.9 K/mm3 (4.0-10.0)
[2018-11-08 07:14] LABS: ALBUMIN 2.8 g/dl (3.4-5.0); BILIRUBIN,TOTAL 0.2 mg/dL (0.2-1); CALCIUM 8.3 mg/dL (8.5-10.1); CREATININE 0.6 mg/dL (0.55-1.3); POTASSIUM 4.2 mmol/L (3.5-5.1); TOT PROT 5.8 g/dl (6.4-8.2)
[2018-11-08 08:29] VITALS: BP 122/75; PULSE 65; TEMP 98.2
--- NOTE | 2018-11-08 13:42 | PN ---
Teaching Attending Note Name of Resident: Jocelyn Lindsey ATTENDING PHYSICIAN STATEMENT I saw and evaluated the patient. I reviewed the resident's note and discussed the case with the resident. I agree with the resident's findings and plan as documented. SUBJECTIVE: muscle aches are better . has no fever or chills . no SOB or cough OBJECTIVE: NAD Cv : RRR Lungs: CTAB Ext " No edema or erythema. no tenderness on palpation ASSESSMENT AND PLAN: 33 y/o lady with h/o Asthma who presented with muscle aches and was found to have Rhabdomyolysis 1- Acute Rhabdo: improved . CPK is down and Cr is NL. - cont with oral hydration . she is young and can orally hydrate - advised to avoid exercise x at least 2 weeks and unti all her aches are gone - advised to get LFTS adn CMP done by PCP 2- Elevated LFTs, due to rhabdo. improved 3- Elevated TSH, nl T3, T4. repeat As out pt 4- slightly elevated bP. on IVF. will prescribe a BP cuff to check her BP daily. f/u with PCP . she understands importance fo f/u dc home today all above was conveyed to pt verbally
--- NOTE | 2018-11-08 13:54 | DS ---
Physical Exam: SUBJECTIVE: Patient seen and examined OBJECTIVE: Vital Signs Period Temp Pulse Resp BP Sys/Viveros Pulse Ox Last 24 Hr 97.5 F-98.7 F 60-75 18-20 122-143/75-98 99 PHYSICAL EXAM GENERAL: The patient is awake, alert, and fully oriented, in no acute distress. HEAD: Normal with no signs of trauma. EYES: PERRL, extraocular movements intact, sclera anicteric, conjunctiva clear. ENT: Ears normal, nares patent, oropharynx clear without exudates, moist mucous membranes. NECK: Trachea midline, full range of motion, supple. LUNGS: Breath sounds equal, clear to auscultation bilaterally, no wheezes, no crackles, no accessory muscle use. HEART: Regular rate and rhythm, S1, S2 without murmur, rub or gallop. ABDOMEN: Soft, nontender, nondistended, normoactive bowel sounds, no guarding, no rebound, no hepatosplenomegaly, no masses. EXTREMITIES: 2+ pulses, warm, well-perfused, no edema. NEUROLOGICAL: Cranial nerves II through XII grossly intact. Normal speech, gait not observed. PSYCH: Normal mood, normal affect. SKIN: Warm, dry, normal turgor, no rashes or lesions noted. LABS Laboratory Results - last 24 hr 11/07/18 11/07/18 11/08/18 17:40 17:40 05:54 WBC 7.9 RBC 3.89 Hgb 12.9 Hct 37.5 MCV 96.4 H MCH 33.2 MCHC 34.4 RDW 13.0 Plt Count 229 MPV 8.3 Sodium Potassium Chloride Carbon Dioxide Anion Gap BUN Creatinine Est GFR (CKD-EPI)AfAm Est GFR (CKD-EPI)NonAf Random Glucose Calcium Total Bilirubin AST ALT Alkaline Phosphatase Creatine Kinase 2802 H Creatine Kinase Index 0.3 CK-MB (CK-2) 10.2 H Cancelled Total Protein Albumin 11/08/18 11/08/18 05:54 05:54 WBC RBC Hgb Hct MCV MCH MCHC RDW Plt Count MPV Sodium 140 Potassium 4.2 Chloride 106 Carbon Dioxide 27 Anion Gap 7 L BUN 11.0 Creatinine 0.6 Est GFR (CKD-EPI)AfAm 137.83 Est GFR (CKD-EPI)NonAf 118.92 Random Glucose 77 Calcium 8.3 L Total Bilirubin 0.2 AST 126 H ALT 245 H Alkaline Phosphatase 43 L Creatine Kinase 1657 H Creatine Kinase Index 0.4 CK-MB (CK-2) 6.6 H TNP Total Protein 5.8 L Albumin 2.8 L HOSPITAL COURSE: Date of Admission:11/03/18 Date of Discharge: 11/08/18 Minutes to complete discharge: 40 Discharge Summary Reason For Visit: RHABDOMYOLYSIS Condition: Improved - Instructions Diet, Activity, Other Instructions: You were in the hospital because you had muscle injury which resulted in a condition called "rhabdomyolysis". When your muscles are damaged proteins leak out which can damage your kidneys and cause your urine to be dark. You were treated with IV hydration for 5 days. Your kidney and liver numbers improved and you were stable for discharge home. Please continue to keep yourself well hydrated and avoid any strenuous activities or extreme sports at this time for at least 2 weeks and until all mucle aches are resolved . Drink plenty of flluids Please continue to take all of your home medications as prescribed. Please keep a log of your blood pressures prior to seeing your primary care doctor. During your hospital stay your blood pressures were slightly elevated, this may have been due to the fluids however you must follow up incase you need to be started on a medication. Also, your thyroid stimulating hormone was higher than usual, please let your primary care doctor know this so they can order follow up labs. Please follow up with your primary care doctor within 1 week of discharge from the hospital. We are referring you to Dr. Vilchis and the resident clinic at [address] [place] [address] ([phone]) in case you do not one and need to establish care. If you begin to feel muscle pains, feverish, like your heart is racing, or have dark brown urine, please return to the Emergency Department immediately. Referrals: Leonardo Vilchis MD [Staff Physician] - 1 Week Disposition: HOME - Home Medications Comprehensive Discharge Medication List: Ambulatory Orders Ethinyl Estradiol/Drospirenone [Drospirenone-Ee 3-0.02 mg Tab] 1 tab PO DAILY Miscellaneous Medical Supply [Outpatient Order] 1 [facility] This patient is new to me today: No Emergency Visit: Yes ED Registration Date: 11/03/18 Care time: The patient presented to the Emergency Department on the above date and was hospitalized for further evaluation of their emergent condition. Critical Care patient: No - Discharge Referral Referred to [facility] No ATTENDING PHYSICIAN STATEMENT I saw and evaluated the patient. I reviewed the resident's note and discussed the case with the resident. I agree with the resident's findings and plan as documented. SUBJECTIVE: OBJECTIVE: ASSESSMENT AND PLAN:
[2018-11-09 19:08] LABS: CK-MM 100 % (97-100)
== END 2018-11-08 14:39 | disposition home or self-care (01) | DRG 558 ==
LOC: JER 19:49 → JERBED 11-03 03:14 → J7W 11-03 12:47
PROVIDERS: ADMIT Internal Medicine; ATTEND Internal Medicine
DX: M62.82 Rhabdomyolysis (principal); S36.119A Unspecified injury of liver, initial encounter; I10 Essential (primary) hypertension; D72.829 Elevated white blood cell count, unspecified; D75.89 Other specified diseases of blood and blood-forming organs
CPT/HCPCS: 36415; 71046-TC-FY; 76705-TC; 76775-TC; 80053; 80307; 81003; 82550; 82552; 82553; 83735; 83874; 84100; 84436; 84439; 84443; 84481; 84703; 85025; 85027; 85610; 93005; 93010; 99285-25; J7030